=== PATIENT | female | born 1945 | race Caucasian/White ===

== ENCOUNTER 2022-11-18 15:44 | Emergency (ER) | payer MEDICARE ==
[~2022-11-18] VITALS: Ht 149.9 cm; Wt 74.4 kg
[2022-11-18 16:11] LABS: BASOPHILS ABSOLUTE AUTO 0.07 K/mm3 (0.00-0.23); BASOPHILS PERCENT AUTO 1 % (0-2); EOSINOPHILS ABSOLUTE AUTO 0.31 K/mm3 (0.00-0.68); EOSINOPHILS PERCENT AUTO 4 % (0-6); Hematocrit 46.3 % (33.0-51.0); Hemoglobin 15.5 g/dL (11.5-16.0); IMMATURE GRAN ABSOLUTE AUTO 0.02 K/mm3 (0.00-0.10); IMMATURE GRAN PERCENT AUTO 0 % (0-1); LYMPHOCYTES ABSOLUTE AUTO 2.84 K/mm3 (0.84-5.20); LYMPHOCYTES PERCENT AUTO 35 % (21-46); MONOCYTES ABSOLUTE AUTO 0.45 K/mm3 (0.16-1.47); MONOCYTES PERCENT AUTO 6 % (4-13); Mean Corpuscular HGB 29.1 pg (26.0-34.0); Mean Corpuscular HGB Conc 33.5 g/dL (31.5-36.5); Mean Corpuscular Volume 87 fL (80-100); Mean Platelet Volume 9.2 fL (9.1-12.4); NEUTROPHILS ABSOLUTE AUTO 4.46 K/mm3 (1.96-9.15); NEUTROPHILS PERCENT AUTO 55 % (41-73); Platelet Count 292 K/mm3 (150-400); RDW Coefficient Variation 13.2 % (11.7-14.2); RDW Standard Deviation 41.8 fL (35.1-46.3); Red Blood Cell Count 5.33 M/mm3 (3.80-5.20); White Blood Cell Count 8.15 K/mm3 (4.00-11.30)
[2022-11-18 16:36] LABS: Albumin, Blood 3.8 g/dL (3.4-5.0); Bilirubin, Total 0.4 mg/dL (0.1-1.0); Bun/Creatinine Ratio 18.1 (12.0-20.0); Calcium, Blood 9.9 mg/dL (8.5-10.1); Creatinine, Blood 0.94 mg/dL (0.40-1.00); Globulin, Blood 3.7 g/dL (2.2-4.0); Potassium, Blood 3.9 mmol/L (3.5-5.5); Total Protein, Blood 7.5 g/dL (6.4-8.2)
[2022-11-18 16:37] LABS: Source, Urine Clean Catch
[2022-11-18 16:47] LABS: Appearance, Urine Cloudy (Clear); Bilirubin, Urine Neg (Neg); Blood, Urine 4+ (Neg); Color, Urine Yellow (P-Yellow); Glucose Qualitative, Urine Neg (Neg); Ketones, Urine Neg (Neg); Leukocyte Esterase, Urine 3+ (Neg); Nitrite, Urine Neg (Neg); Protein, Urine 2+ (Neg); Urobilinogen, Urine NORM (Normal)
[2022-11-18 17:15] LABS: Bacteria Many /hpf; Squamous Epithelial Cells Many /hpf (Few); White Blood Cells, Urine 25-50 /hpf (0-5)
[2022-11-18] MEDS ORDERED: ATORVASTATIN CA20 MG PO (17:59)
[2022-11-18] MEDS ORDERED: MEMA10 PO (18:00)
[2022-11-18] MEDS ORDERED: NITR100CA PO (19:27)
== END 2022-11-18 19:49 | disposition home or self-care (01) ==
LOC: ER 15:44
PROVIDERS: Physician Assistant
DX: I10 Essential (primary) hypertension (principal); N39.0 Urinary tract infection, site not specified; R53.83 Other fatigue
CPT/HCPCS: 36415; 80053; 81001; 85025; 87086; 87147; 93005; 93010; 99283-25

== ENCOUNTER 2023-03-21 09:22 | Inpatient (IN) | payer MEDICARE ==
[~2023-03-21] VITALS: Ht 147.3 cm; Wt 75.0 kg
[~2023-03-21 09:22] MED LIST: ATORVASTATIN CA20 MG PO; MEMA10 PO; NITR100CA PO
[2023-03-21 11:16] LABS: Source, Urine Straight Cath
[2023-03-21 11:16] LABS: BASOPHILS ABSOLUTE AUTO 0.02 K/mm3 (0.00-0.23); BASOPHILS PERCENT AUTO 0 % (0-2); EOSINOPHILS PERCENT AUTO 0 % (0-6); Hemoglobin 18.1 g/dL (11.5-16.0); IMMATURE GRAN ABSOLUTE AUTO 0.02 K/mm3 (0.00-0.10); IMMATURE GRAN PERCENT AUTO 0 % (0-1); LYMPHOCYTES ABSOLUTE AUTO 1.14 K/mm3 (0.84-5.20); LYMPHOCYTES PERCENT AUTO 11 % (21-46); MONOCYTES ABSOLUTE AUTO 0.62 K/mm3 (0.16-1.47); MONOCYTES PERCENT AUTO 6 % (4-13); Mean Corpuscular HGB 29.6 pg (26.0-34.0); Mean Corpuscular HGB Conc 34.2 g/dL (31.5-36.5); Mean Corpuscular Volume 87 fL (80-100); Mean Platelet Volume 9.7 fL (9.1-12.4); NEUTROPHILS ABSOLUTE AUTO 8.54 K/mm3 (1.96-9.15); NEUTROPHILS PERCENT AUTO 83 % (41-73); Platelet Count 300 K/mm3 (150-400); RDW Coefficient Variation 13.8 % (11.7-14.2); RDW Standard Deviation 43.1 fL (35.1-46.3); Red Blood Cell Count 6.11 M/mm3 (3.80-5.20); White Blood Cell Count 10.34 K/mm3 (4.00-11.30)
[2023-03-21 11:26] LABS: Bilirubin, Urine Neg (Neg); Blood, Urine 4+ (Neg); Glucose Qualitative, Urine 2+ (Neg); Ketones, Urine 1+ (Neg); Leukocyte Esterase, Urine Neg (Neg); Nitrite, Urine Neg (Neg); Protein, Urine 4+ (Neg); Urobilinogen, Urine NORM (Normal)
[2023-03-21 11:35] LABS: Albumin, Blood 3.9 g/dL (3.4-5.0); Albumin/Globulin Ratio 0.8 (0.8-1.8); Bun/Creatinine Ratio 10.9 (12.0-20.0); Calcium, Blood 10.8 mg/dL (8.5-10.1); Creatinine, Blood 2.39 mg/dL (0.40-1.00); Globulin, Blood 4.8 g/dL (2.2-4.0); Magnesium, Blood 1.9 mg/dL (1.6-2.4); Total Protein, Blood 8.7 g/dL (6.4-8.2)
[2023-03-21 11:52] LABS: Appearance, Urine Clear (Clear); Color, Urine Yellow (P-Yellow)
[2023-03-21 12:04] LABS: Hyaline Casts 0-2 /lpf (0-2); Squamous Epithelial Cells Rare /hpf (Few)
[2023-03-21 12:05] LABS: Bacteria Rare /hpf; Transitional Epithelial Cells Rare /hpf (0-Rare)
[2023-03-21 12:06] LABS: Renal Epithelial Rare /hpf (0-Rare)
[2023-03-21] MEDS ORDERED: DONEPEZIL HCL5 M2 PO (13:26)
[2023-03-21] MEDS ORDERED: ESCI20 PO (13:27)
[2023-03-21] MEDS ORDERED: LOSARTAN POTAS100 M1 PO (13:28)
[2023-03-21] MEDS ORDERED: ACTOS15 MG PO (13:29)
[2023-03-21 15:04] VITALS: BP 173/52
--- NOTE | 2023-03-21 15:30 | NUR ---
ASSUMED CARE OF PATIENT UPON HER ARRIVAL FROM ED AT 1453. TRANSFERRED FROM [facility] TO BED WITH SLIDER SHEET. DENIED PAIN. A&O X 1-2, SLOW TO RESPOND, DOES NOT KNOW DAY/DATE, BUT KNEW THE YEAR. NS INFUSING AT 150 ML/HR INTO L AC IV. UNABLE TO GET INFORMATION FROM PT SHE STATES SHE DOESN'T REMEMBER WHEN ASKED. ABLE TO TURN IN BED INDEPENDENTLY. PER REPORT FROM ED SALLY MICHAUD, PT LIVES ALONE AND WAS FOUND BY NEIGHBOR, BUT PT STATED SHE LIVES IN A HOUSE WITH HER DAUGHTER AND IAIN. EDUCATED ABOUT CALL LIGHT, FALL PRECAUTIONS, OXGEN SAFETY AND IGNITION RISK (SHE HAS NO IGNITION DEVICES AND DOES NOT SMOKE OR USE OXYGEN). CALL LIGHT IN REACH, BED IN LOWEST POSITION, BED ALARM ON.
--- NOTE | 2023-03-21 18:20 | NUR ---
SHIFT SUMMARY: REPEAT LACTIC ACID 2.1; DR. REVELES NOTIFIED, NO NEW ORDERS AT THIS TIME. NO EVENTS ON TELEMETRY, SR 90'S, HAS PROLONGED QTC PER EKG. SLIGHT PAIN IN LLE AND RUQ, DECLINED OFFERED PAIN MEDICATIONS. APPETITE IS POOR, PICKS AT HER FOOD. GOT UP TO BSC ONCE; URINE IS LIGHT BROWN, PINK TINGED, WITH SEDIMENT. AWAITING STOOL SPECIMEN. GAIT IS QUITE WEAK, BED ALARM IS ON.
[2023-03-21 19:53] VITALS: BP 134/46
[2023-03-22 04:51] LABS: BASOPHILS ABSOLUTE AUTO 0.05 K/mm3 (0.00-0.23); BASOPHILS PERCENT AUTO 1 % (0-2); EOSINOPHILS ABSOLUTE AUTO 0.03 K/mm3 (0.00-0.68); EOSINOPHILS PERCENT AUTO 0 % (0-6); Hematocrit 42.2 % (33.0-51.0); Hemoglobin 14.6 g/dL (11.5-16.0); IMMATURE GRAN ABSOLUTE AUTO 0.03 K/mm3 (0.00-0.10); IMMATURE GRAN PERCENT AUTO 0 % (0-1); LYMPHOCYTES ABSOLUTE AUTO 2.65 K/mm3 (0.84-5.20); LYMPHOCYTES PERCENT AUTO 25 % (21-46); MONOCYTES ABSOLUTE AUTO 1.03 K/mm3 (0.16-1.47); MONOCYTES PERCENT AUTO 10 % (4-13); Mean Corpuscular HGB 29.6 pg (26.0-34.0); Mean Corpuscular HGB Conc 34.6 g/dL (31.5-36.5); Mean Corpuscular Volume 85 fL (80-100); Mean Platelet Volume 9.5 fL (9.1-12.4); NEUTROPHILS ABSOLUTE AUTO 6.95 K/mm3 (1.96-9.15); NEUTROPHILS PERCENT AUTO 65 % (41-73); Platelet Count 247 K/mm3 (150-400); RDW Coefficient Variation 13.7 % (11.7-14.2); RDW Standard Deviation 43.1 fL (35.1-46.3); Red Blood Cell Count 4.94 M/mm3 (3.80-5.20); White Blood Cell Count 10.74 K/mm3 (4.00-11.30)
[2023-03-22 05:13] LABS: Albumin, Blood 3.3 g/dL (3.4-5.0); Albumin/Globulin Ratio 0.9 (0.8-1.8); Bilirubin, Total 0.7 mg/dL (0.1-1.0); Bun/Creatinine Ratio 10.4 (12.0-20.0); Calcium, Blood 9.5 mg/dL (8.5-10.1); Creatinine, Blood 2.6 mg/dL (0.40-1.00); Globulin, Blood 3.5 g/dL (2.2-4.0); Total Protein, Blood 6.8 g/dL (6.4-8.2)
[2023-03-22 05:22] LABS: Potassium, Blood 2.8 mmol/L (3.5-5.5)
--- NOTE | 2023-03-22 06:04 | NUR ---
EOS NOTE: MOSTLY UNEVENTFUL SHIFT. PATIENT BECAME MORE ORIENTED THE NIGHT WENT ON, REMEMBERED WHAT HAPPENED AND HOW. VERY PLEASANT AND COOPERATIVE, A/OX4 AT THIS TIME WITH MILD FORGETFULNESS. 0230 TELE SUPERVISOR RIVETING NOTED QT INTERVAL SLIGHTLY PROLONGING THROUGHOUT SHIFT, MD NOTIFIED. NO NEW ORDERS AT THIS TIME. PATIENT IS RESTING QUIETLY, STATES SHE KNOWS HER ABILITY TO AMBULATE APPROPRIATELY HAS BEEN ON THE DECLINE, X1-2 MOD ASSIST TO COMMODE. BALANCE IS NOTABLY OFF, PATIENT STATES SHE FEELS WEAK.
[2023-03-22 06:16] VITALS: BP 173/57
[2023-03-22 07:53] VITALS: BP 183/60
--- NOTE | 2023-03-22 11:36 | NUR ---
BLADDER SCAN PERFORMED ON PT; [address]DER[address] REVELES NOTIFIED BY PHONE.
[2023-03-22 13:02] LABS: Bun/Creatinine Ratio 11.9 (12.0-20.0); Calcium, Blood 9.8 mg/dL (8.5-10.1); Creatinine, Blood 2.36 mg/dL (0.40-1.00); Potassium, Blood 3.7 mmol/L (3.5-5.5)
[2023-03-22 16:36] VITALS: BP 138/63
--- NOTE | 2023-03-22 16:54 | NUR ---
ASSUMED CARE OF PATIENT UPON HER TRANSFER FROM PCU 12 TO ROOM 361; CAME BY W/C. PT IS ABLE TO ANSWER SIMPLE QUESTIONS, IS LETHARGIC. NEEDED TWO PERSON ASSIST TO TRANSFER FROM W/C TO BED. TELEMETRY BOX VERIFIED WITH DYE WORKER, SINUS RHYTHM 80-90'S. FELL ASLEEP IMMEDIATELY AFTER GETTING IN TO BED. BED ALARM ON, CALL LIGHT IN REACH. UNABLE TO EDUCATE PT ABOUT HIGH FIRE RISK AND OXYGEN USE. PT'S BELONGINGS HAD BEEN SEARCHED BY TECHNICAL APPLICATIONS SCIENTIST PRIOR TO TRANSFER.
--- NOTE | 2023-03-22 17:40 | NUR ---
SHIFT SUMMARY: NO ACUTE EVENTS. DENIED PAIN. NO EVENTS ON TELEMETRY, SR 70-80'S. UNABLE TO OBTAIN STOOL SPECIMEN. STRAIGHT CATH X 1, SPECIMEN SENT. POTASSIUM REPLACED. TOOK A SHOWER WITH ASSISTANCE. MENTATION IS MUCH CLEARER THAN YESTERDAY DURING HER ADMISSION, A&O X 4, A LITTLE [place]. WORKED WITH PHYSICAL THERAPY, GAIT IS STEADY BUT MAY BENEFIT FROM FWW AT HOME.
[2023-03-22 17:45] LABS: Bun/Creatinine Ratio 12.6 (12.0-20.0); Calcium, Blood 9.6 mg/dL (8.5-10.1); Creatinine, Blood 2.47 mg/dL (0.40-1.00)
[2023-03-22 20:49] VITALS: BP 137/67
[2023-03-23 00:53] LABS: Bun/Creatinine Ratio 13.6 (12.0-20.0); Calcium, Blood 9.5 mg/dL (8.5-10.1); Creatinine, Blood 2.5 mg/dL (0.40-1.00); Potassium, Blood 3.5 mmol/L (3.5-5.5)
[2023-03-23 04:00] VITALS: BP 157/57
--- NOTE | 2023-03-23 04:50 | NUR ---
PROCESS TRAINER SUMMARY VSS. HERE FOR JANES. AM RN REPORTED PT HAS KIDNEY STONES AND TO MONITOR FOR BILAT FLANK PAIN, TO NOTIFY THE MD FOR POSSIBLE TRANSFER TO ANOTHER FACILITY FOR POSSIBEL SURGERY. PT HAS DENIED PAIN THROUGH SHIFT. ALERT AND ORIENTED X 4. AFFECT CHEERFUL AND PLEASANT. ON ROOM AIR, CONT PULSE OX IN THE 90'S WITH OWN CPAP WHILE SLEEPING. HAS BEEN RSTING QUIETLY WITH EFW INTERRUPTIONS. RECEIVED FIRE IGNITION/OXYGEN SMOKING TEACHING EARLIER IN THE SHIFT. PEREYRA DRAINING CLEAR. CALL LIGHT IN REACH. WILL CONTINUE TO MONITOR
[2023-03-23 06:39] LABS: BASOPHILS ABSOLUTE AUTO 0.06 K/mm3 (0.00-0.23); BASOPHILS PERCENT AUTO 1 % (0-2); EOSINOPHILS ABSOLUTE AUTO 0.26 K/mm3 (0.00-0.68); EOSINOPHILS PERCENT AUTO 3 % (0-6); Hematocrit 38.9 % (33.0-51.0); Hemoglobin 13.4 g/dL (11.5-16.0); IMMATURE GRAN ABSOLUTE AUTO 0.03 K/mm3 (0.00-0.10); IMMATURE GRAN PERCENT AUTO 0 % (0-1); LYMPHOCYTES ABSOLUTE AUTO 2.54 K/mm3 (0.84-5.20); LYMPHOCYTES PERCENT AUTO 29 % (21-46); MONOCYTES ABSOLUTE AUTO 0.75 K/mm3 (0.16-1.47); MONOCYTES PERCENT AUTO 9 % (4-13); Mean Corpuscular HGB 29.6 pg (26.0-34.0); Mean Corpuscular HGB Conc 34.4 g/dL (31.5-36.5); Mean Corpuscular Volume 86 fL (80-100); Mean Platelet Volume 9.7 fL (9.1-12.4); NEUTROPHILS ABSOLUTE AUTO 5.12 K/mm3 (1.96-9.15); NEUTROPHILS PERCENT AUTO 58 % (41-73); Platelet Count 226 K/mm3 (150-400); RDW Coefficient Variation 13.9 % (11.7-14.2); RDW Standard Deviation 43.5 fL (35.1-46.3); Red Blood Cell Count 4.52 M/mm3 (3.80-5.20); White Blood Cell Count 8.76 K/mm3 (4.00-11.30)
[2023-03-23 06:55] LABS: Bun/Creatinine Ratio 12.5 (12.0-20.0); Calcium, Blood 9.5 mg/dL (8.5-10.1); Creatinine, Blood 2.32 mg/dL (0.40-1.00); Potassium, Blood 3.2 mmol/L (3.5-5.5)
[2023-03-23 07:54] VITALS: BP 154/59
--- NOTE | 2023-03-23 10:13 | NUR ---
MAE NOTED A COMMENT TO ENCOURAGE FAMILY TO BRING IN HOME MAE. SPOKE WITH PATIENT'S DAUGHTER ZOHREH. SHE REPORTS THAT SHE CAN BRING IT IN LATER THIS AFTERNOON.
--- NOTE | 2023-03-23 15:54 | NUR ---
DISCHARGE SUMMARY: LATE ENTRY FOR 1500 PATENT REPORTED DURING THE SHIFT THAT SHE WAS NOT FEELING WELL. PATIENT WAS UNABLE TO PINPOINT ANY SPECIFIC SYMPTOM, RATHER THAT SHE WAS JUST "NOT GOOD". PATIENT SLEPT MOST OF THE DAY. PATIENT ABLE TO AMBULATE WITH OT. PATIENT DENIED NAUSEA AND REPORTED LACK OF APPETITE. PATIENT HAD 2 SOFT/FORMED BOWEL MOVEMENTS TODAY. NO LOOSE STOOLS. URINE OUTPUT INTO THE INDWELLING CATHETER WAS CLEAR, LIGHT YELLOW. NO STONES WERE CAUGHT BY THE URINE SCREEN. NOTED COMMENT IN PROGRESS NOTE ENCOURAGING HOME LEXAPRO TO BE BROUGHT IN FOR THE PATIENT. DAUGHTER BROUGHT IT IN AND ORDER RECEIVED FROM DR. BREWER TO RESTART. EARLY AFTERNOON, PATIENT STARTING REPORTING MODERATE RIGHT SIDE PAIN. FAMILY REPORTED CONCERNS OF CHANGE IN PATIENT'S ENERGY AND HER REPORTS OF FEELING UNWELL. DISCUSSED WITH DR. BREWER. SHE WAS ABLE TO ROUND ON THE PATIENT AND FAMILY. AFTER FAMILY DISCUSSED AMONGST THEMSELVES, THEY DECIDED FOR THE PATIENT TO LEAVE [place] AND DRIVE TO [facility]. NOTIFIED DR. BREWER OF THIS DECISION. EDUCATION PROVIDED TO THE PATIENT AND FAMILY ON THIS DECISION. PRIOR TO LEAVING, THEY WERE ABLE TO OBTAIN A PATIENT COPY OF IMAGING TAKEN DURING THE PATIENT'S STAY. PATIENT DISCHARGED WITH FAMILY IN WHEELCHAIR. PATIENT HEMODYNAMICALLY STABLE AT TIME OF DISCHARGE. DURING THE DAY, STAFF MONITORED THE ROOM FOR IGNITION SOURCES. EDUCATION PROVIDED TO THE PATIENT AND FAMILY IN REGARDS TO IGNITION SOURCES AND FIRE RISK IN THE HOSPITAL. THEY REPORTED UNDERSTANDING. PATIENT IS A NON-SMOKER AND DENIED SOURCES OF IGNITION AMONG HER BELONGINGS.
== END 2023-03-23 15:26 | disposition left against medical advice (07) | DRG 683 ==
LOC: ER 09:22 → MEDS 13:53
PROVIDERS: Emergency Medicine; Student in an Organized Health Care Education/Training Program; ADMIT Internal Medicine
PROC: 5A09357 Assistance with Respiratory Ventilation, Less than 24 Consecutive Hours, Continuous Positive Airway Pressure (ICD-10-PCS; principal; 2023-03-21)
DX: N17.9 Acute kidney failure, unspecified (principal); F03.93 Unspecified dementia, unspecified severity, with mood disturbance; I10 Essential (primary) hypertension; G47.33 Obstructive sleep apnea (adult) (pediatric); E11.9 Type 2 diabetes mellitus without complications; E78.5 Hyperlipidemia, unspecified; E86.0 Dehydration; M25.552 Pain in left hip; R94.31 Abnormal electrocardiogram [ECG] [EKG]; N13.6 Pyonephrosis; R74.02 Elevation of levels of lactic acid dehydrogenase [LDH]; R74.8 Abnormal levels of other serum enzymes; E87.6 Hypokalemia; S70.02XA Contusion of left hip, initial encounter; E86.1 Hypovolemia; A08.4 Viral intestinal infection, unspecified; W18.30XA Fall on same level, unspecified, initial encounter; Z53.29 Procedure and treatment not carried out because of patient's decision for other reasons; B95.1 Streptococcus, group B, as the cause of diseases classified elsewhere; Z99.89 Dependence on other enabling machines and devices; Z88.0 Allergy status to penicillin; Z79.02 Long term (current) use of antithrombotics/antiplatelets; Z79.899 Other long term (current) drug therapy
CPT/HCPCS: 36415; 70450; 72125; 73502; 74176; 76770; 80048; 80053; 81001; 82947; 83605; 83735; 83880; 85025; 87086; 87147; 93005; 93010; 94760; 94762; 96361; 96374; 97161; 97166; 97530; 97535; 99285-25; A9270; J0360; J0696; J1644; J3480; J7030; J7050; J7120; P9612

== ENCOUNTER → 2023-12-22 | Outpatient (CLI) | payer MEDICARE ==
[~2023-12-22] MED LIST changes: +ACTOS15 MG PO; +DONEPEZIL HCL5 M2 PO; +ESCI20 PO; +LOSARTAN POTAS100 M1 PO
[2023-12-22 16:09] LABS: Source, Urine Clean Catch
[2023-12-22 17:02] LABS: Appearance, Urine Hazy (Clear); Bilirubin, Urine Neg (Neg); Blood, Urine Neg (Neg); Color, Urine Yellow (P-Yellow); Glucose Qualitative, Urine Neg (Neg); Ketones, Urine Neg (Neg); Leukocyte Esterase, Urine Neg (Neg); Nitrite, Urine Pos (Neg); Protein, Urine 1+ (Neg); Urobilinogen, Urine NORM (Normal)
[2023-12-22 17:44] LABS: Bacteria Many /hpf; Red Blood Cells, Urine 0-2 /hpf (0-2); Squamous Epithelial Cells Few /hpf (Few); White Blood Cells, Urine 0-2 /hpf (0-5)
== END | disposition home or self-care (01) ==
LOC: LAB 12:12 → LAB SHORT 12:12
PROVIDERS: Nurse Practitioner Family
DX: F03.90 Unspecified dementia, unspecified severity, without behavioral disturbance, psychotic disturbance, mood disturbance, and anxiety (principal)
CPT/HCPCS: 81001; 82607; 82746; 87077; 87086; 87186

== ENCOUNTER → 2024-01-28 | Outpatient (CLI) | payer MEDICARE ==
[2024-01-28 16:48] LABS: Albumin, Blood 3.7 g/dL (3.4-5.0); Albumin/Globulin Ratio 1.1 (0.8-1.8); Bilirubin, Total 0.5 mg/dL (0.1-1.0); Bun/Creatinine Ratio 21.6 (12.0-20.0); Calcium, Blood 9.9 mg/dL (8.5-10.1); Creatinine, Blood 0.88 mg/dL (0.40-1.00); Globulin, Blood 3.5 g/dL (2.2-4.0); Potassium, Blood 4.2 mmol/L (3.5-5.5); Total Protein, Blood 7.2 g/dL (6.4-8.2)
[2024-01-28 16:54] LABS: BASOPHILS ABSOLUTE AUTO 0.08 K/mm3 (0.00-0.23); BASOPHILS PERCENT AUTO 1 % (0-2); EOSINOPHILS ABSOLUTE AUTO 0.18 K/mm3 (0.00-0.68); EOSINOPHILS PERCENT AUTO 2 % (0-6); Hematocrit 42.4 % (33.0-51.0); IMMATURE GRAN ABSOLUTE AUTO 0.02 K/mm3 (0.00-0.10); IMMATURE GRAN PERCENT AUTO 0 % (0-1); LYMPHOCYTES PERCENT AUTO 25 % (21-46); MONOCYTES ABSOLUTE AUTO 0.61 K/mm3 (0.16-1.47); MONOCYTES PERCENT AUTO 8 % (4-13); Mean Corpuscular HGB 29.6 pg (26.0-34.0); Mean Corpuscular Volume 90 fL (80-100); Mean Platelet Volume 9.8 fL (9.1-12.4); NEUTROPHILS ABSOLUTE AUTO 5.04 K/mm3 (1.96-9.15); NEUTROPHILS PERCENT AUTO 64 % (41-73); Platelet Count 273 K/mm3 (150-400); RDW Coefficient Variation 14.4 % (11.7-14.2); RDW Standard Deviation 46.5 fL (35.1-46.3); Red Blood Cell Count 4.73 M/mm3 (3.80-5.20); White Blood Cell Count 7.93 K/mm3 (4.00-11.30)
== END ==
LOC: LAB 16:27 → LAB SHORT 16:27
PROVIDERS: Emergency Medicine
DX: R10.2 Pelvic and perineal pain (principal)
CPT/HCPCS: 80053; 85025; 87077; 87086; 87186

== ENCOUNTER → 2024-03-10 | Outpatient (CLI) | payer MEDICARE | END | disposition home or self-care (01) | LOC: LAB 17:31 → LAB SHORT 17:31 | DX: R30.0 Dysuria (principal) | CPT/HCPCS: 87077; 87086; 87186 ==

== ENCOUNTER → 2024-05-19 | Outpatient (CLI) | payer MEDICARE | END | disposition home or self-care (01) | LOC: LAB SHORT 14:40 → LAB 14:40 | DX: N39.0 Urinary tract infection, site not specified (principal); B96.20 Unspecified Escherichia coli [E. coli] as the cause of diseases classified elsewhere | CPT/HCPCS: 87077; 87086; 87186 ==

== ENCOUNTER → 2024-06-07 | Outpatient (CLI) | payer MEDICARE | END | disposition home or self-care (01) | LOC: LAB 17:17 → LAB SHORT 17:17 | DX: N39.0 Urinary tract infection, site not specified (principal); B96.20 Unspecified Escherichia coli [E. coli] as the cause of diseases classified elsewhere | CPT/HCPCS: 87077; 87086; 87186 ==

== ENCOUNTER 2024-07-31 20:43 | Emergency (ER) | payer MEDICARE ==
[~2024-07-31] VITALS: Ht 165.1 cm; Wt 83.9 kg
[2024-07-31 21:21] LABS: BASOPHILS ABSOLUTE AUTO 0.07 K/mm3 (0.00-0.23); BASOPHILS PERCENT AUTO 1 % (0-2); EOSINOPHILS PERCENT AUTO 2 % (0-6); Hematocrit 45.7 % (33.0-51.0); Hemoglobin 15.3 g/dL (11.5-16.0); IMMATURE GRAN ABSOLUTE AUTO 0.02 K/mm3 (0.00-0.10); IMMATURE GRAN PERCENT AUTO 0 % (0-1); LYMPHOCYTES PERCENT AUTO 33 % (21-46); MONOCYTES PERCENT AUTO 6 % (4-13); Mean Corpuscular HGB Conc 33.5 g/dL (31.5-36.5); Mean Corpuscular Volume 90 fL (80-100); Mean Platelet Volume 9.2 fL (9.1-12.4); NEUTROPHILS ABSOLUTE AUTO 5.23 K/mm3 (1.96-9.15); NEUTROPHILS PERCENT AUTO 58 % (41-73); Platelet Count 290 K/mm3 (150-400); RDW Coefficient Variation 13.8 % (11.7-14.2); RDW Standard Deviation 45.5 fL (35.1-46.3); White Blood Cell Count 9.02 K/mm3 (4.00-11.30)
[2024-07-31 21:39] LABS: Albumin, Blood 3.6 g/dL (3.4-5.0); Bilirubin, Total 0.8 mg/dL (0.1-1.0); Calcium, Blood 9.8 mg/dL (8.5-10.1); Creatinine, Blood 0.96 mg/dL (0.40-1.00); Globulin, Blood 3.5 g/dL (2.2-4.0); Potassium, Blood 3.9 mmol/L (3.5-5.5); Total Protein, Blood 7.1 g/dL (6.4-8.2)
[2024-07-31] MEDS ORDERED: HYDR10 PO (21:58)
[2024-07-31] MEDS ORDERED: VERAPAMIL HCL PO (21:58)
[2024-07-31 22:00] LABS: Source, Urine Straight Cath
[2024-07-31 22:07] LABS: Bilirubin, Urine Neg (Neg); Blood, Urine 3+ (Neg); Glucose Qualitative, Urine Neg (Neg); Ketones, Urine 1+ (Neg); Leukocyte Esterase, Urine 1+ (Neg); Nitrite, Urine Pos (Neg); Protein, Urine 3+ (Neg); Urobilinogen, Urine NORM (Normal)
[2024-07-31 22:12] LABS: Appearance, Urine Hazy (Clear); Color, Urine Yellow (P-Yellow)
[2024-07-31 22:13] LABS: Bacteria Many /hpf; Red Blood Cells, Urine 50-100 /hpf (0-2); Squamous Epithelial Cells Rare /hpf (Few); White Blood Cells, Urine 25-50 /hpf (0-5)
[2024-07-31 22:30] VITALS: BP 166/75
[2024-07-31] MEDS ORDERED: SULTRIDS PO (22:34)
[2024-07-31] MEDS ORDERED: Trimethoprim/Sulfamethoxazole DS Tab PO ONE (22:35)
== END 2024-07-31 22:51 | disposition home or self-care (01) ==
LOC: ER 20:43
PROVIDERS: Emergency Medicine
DX: N39.0 Urinary tract infection, site not specified (principal); R31.9 Hematuria, unspecified; R42 Dizziness and giddiness; E78.5 Hyperlipidemia, unspecified; E11.9 Type 2 diabetes mellitus without complications; I10 Essential (primary) hypertension; G47.33 Obstructive sleep apnea (adult) (pediatric); Z79.899 Other long term (current) drug therapy; Z88.0 Allergy status to penicillin
CPT/HCPCS: 51701; 80053; 81001; 85025; 87077; 87086; 87186; 93005; 93010; 99284-25; A9270; P9612